=== PATIENT | male | born 1945 | race Caucasian/White ===

== ENCOUNTER 2022-03-11 18:56 | Inpatient (IN) ==
[2022-03-11] MEDS ORDERED: HYDROmorphone 1 MG/1 ML SYRINGE IV STA ×2 (19:52→23:40)
[2022-03-11] MEDS ORDERED: ONDANSETRON 4 MG/2 ML VIAL IV STA (19:52)
[2022-03-11 19:55] LABS: Basophils % 0.2 % (0.0-0.8); Eosinophils % 0.5 % (0.00-10.9); Hematocrit 34.9 VOL% (42.0-52.0); Hemoglobin 11.7 GM/DL (14.0-18.0); Immature Granulocytes % 1.1 %; Immature Granulocytes Absolute 0.09 #; Lymphocytes # 0.7 10*3/uL (1.4-4.0); Lymphocytes % 8.9 % (21.2-54.2); Mean Corpuscular HGB Conc 33.5 GM/DL (32-36); Mean Corpuscular Volume 96.7 FL (87-102); Mean Platelet Volume 9.9 FL (9.6-12.0); Monocytes # 0.6 10*3/uL (0.11-0.8); Monocytes % 6.6 % (1.7-12.7); Neutrophils % 82.7 % (38.7-73.9); Platelet Count 292 T/CUMM (130-400); Red Blood Count 3.61 MC/CUMM (3.8-5.5); Red Cell Distribution Width 14.1 % (9.3-17.3); White Blood Count 8.3 T/CUMM (4-12)
[2022-03-11 20:13] LABS: Albumin 2.7 G/DL (3.4-5.0); Bilirubin,Total 0.5 MG/DL (0.20-1.00); Calcium 8.9 MG/DL (8.5-10.1); Osmolality,Calculated 281.4 MOS/KG (273-304); Total Protein 6.3 G/DL (6.4-8.2)
[2022-03-11 20:34] LABS: PT Patient Result 11.4 SECS (10.5-12.0); Partial Thromboplastin Time 23.9 SECS (23.8-32.1)
[2022-03-11 21:21] LABS: Bilirubin,Urine Negative (Negative); Blood, Urine Large mg/dL (Negative); Glucose,Urine (UA) Negative (Negative); Ketones,Urine Trace mg/dL (Negative); Nitrite,Urine Negative (Negative); Protein,Urine 100 mg/dL (Negative); Urine Appearance Cloudy (Clear); Urine Color Dark Yellow (Yellow); Urine Specific Gravity 1.025 (1.001-1.035); Urine Urobilinogen 0.2 eU/dL (<2.0)
[2022-03-11 21:30] LABS: Hyaline Casts,Urine 7 /LPF (0-3); Mucus,Urine Occasional /LPF (Occasional); RBC,Urine 13 /HPF (0-4)
[2022-03-11] MEDS ORDERED: ONDANSETRON 4 MG/2 ML VIAL IV PRN (23:38)
[2022-03-11] MEDS ORDERED: PIPERACILLIN/TAZOBACTAM 3,375 MG in SODIUM CHLORIDE 0.9% 100 ML IV STA (23:38)
[2022-03-11] MEDS ORDERED: ASPIRIN 325 MG TABLET PO STA (23:54)
[2022-03-11] MEDS ORDERED: ROSUVASTATIN 10 MG TABLET PO STA (23:54)
[2022-03-12] MEDS ORDERED: ASPIRIN CHEW 81 MG TABLET PO ONE (00:09)
[2022-03-12] MEDS: LOSARTAN 50 MG TABLET PO STA ×2 (00:11→14:59)
[2022-03-12] MEDS ORDERED: LOSARTAN 25 MG TABLET PO STA (00:17)
[2022-03-12] MEDS: LACTATED RINGERS 1,000 ML IV SCH ×3 (01:38→19:29)
[2022-03-12] MEDS: PANTOPRAZOLE 40 MG TABLET PO SCH (09:53)
[2022-03-12] MEDS ORDERED: DOCUSATE SODIUM 100 MG CAPSULE PO PRN (10:33)
[2022-03-12] MEDS ORDERED: NITROGLYCERIN SL 0.4 MG TABLET SL PRN (10:33)
[2022-03-12] MEDS ORDERED: GLUCAGON 1 MG VIAL IM PRN (10:35)
[2022-03-12] MEDS ORDERED: DEXTROSE 10% 250 ML BAG IV PRN (10:35)
[2022-03-12] MEDS: INSULIN LISPRO 100 UNIT/ML SUBCUT SCH ×3 (12:16→21:24)
[2022-03-12] MEDS: ACETAMINOPHEN 500 MG TABLET PO PRN ×2 (12:58→21:25)
[2022-03-12] MEDS ORDERED: GLUCOSAMINE 500 MG TABLET PO SCH (21:00)
[2022-03-12] MEDS: ASPIRIN EC 81 MG TABLET PO SCH (21:22)
[2022-03-12] MEDS: POLYCARBOPHIL 625 MG TABLET PO SCH (21:22)
[2022-03-12] MEDS: ROSUVASTATIN 10 MG TABLET PO SCH (21:22)
[2022-03-12] MEDS: LOSARTAN 25 MG TABLET PO SCH (21:22)
[2022-03-12] MEDS: THYROID 60 MG TABLET PO SCH (21:22)
[2022-03-12] MEDS: COENZYME Q10 100 MG CAPSULE PO SCH (21:22)
[2022-03-12] MEDS: CYANOCOBALAMIN 500 MCG TABLET PO SCH (21:23)
[2022-03-12] MEDS: GLUCOSAMINE 500 MG TABLET PO SCH (21:23)
[2022-03-12] MEDS: OMEGA 3 ACID ETHYL ESTERS 1 GM CAPSULE PO SCH (21:23)
[2022-03-12] MEDS: ASCORBIC ACID 500 MG TABLET PO SCH (21:24)
[2022-03-12] MEDS: MAGNESIUM CHLORIDE 64 MG TABLET PO SCH (21:24)
[2022-03-12] MEDS: PYRIDOXINE 50 MG TABLET PO SCH (21:24)
[2022-03-12] MEDS: ZINC GLUCONATE 50 MG TABLET PO SCH (21:25)
[2022-03-12] MEDS: allopurinoL 300 MG TABLET PO SCH (21:25)
[2022-03-12] MEDS: CHOLECALCIFEROL 1,000 UNIT TABLET PO SCH (21:25)
[2022-03-12] MEDS: tiZANidine 4 MG TABLET PO SCH (21:25)
[2022-03-13] MEDS: LACTATED RINGERS 1,000 ML IV SCH ×4 (03:15→22:28)
[2022-03-13 04:28] LABS: Basophils % 0.2 % (0.0-0.8); Eosinophils # 0.1 10*3/uL (0.0-0.87); Eosinophils % 0.8 % (0.00-10.9); Hematocrit 32.8 VOL% (42.0-52.0); Hemoglobin 10.9 GM/DL (14.0-18.0); Immature Granulocytes % 1.7 %; Immature Granulocytes Absolute 0.16 #; Lymphocytes % 10.2 % (21.2-54.2); Mean Corpuscular HGB Conc 33.2 GM/DL (32-36); Mean Platelet Volume 10.1 FL (9.6-12.0); Monocytes # 0.5 10*3/uL (0.11-0.8); Monocytes % 4.7 % (1.7-12.7); Neutrophils % 82.4 % (38.7-73.9); Platelet Count 280 T/CUMM (130-400); Red Blood Count 3.38 MC/CUMM (3.8-5.5); Red Cell Distribution Width 13.9 % (9.3-17.3); White Blood Count 9.6 T/CUMM (4-12)
[2022-03-13 04:46] LABS: Calcium 9.1 MG/DL (8.5-10.1); Osmolality,Calculated 274.7 MOS/KG (273-304); Potassium 3.8 MMOL/L (3.5-5.1)
[2022-03-13] MEDS: INSULIN LISPRO 100 UNIT/ML SUBCUT SCH ×4 (09:07→20:34)
[2022-03-13] MEDS: LOSARTAN 25 MG TABLET PO SCH ×2 (09:45→20:42)
[2022-03-13] MEDS: MULTIVITAMIN (CENTRUM) TABLET PO SCH (09:45)
[2022-03-13] MEDS: TAMSULOSIN 0.4 MG CAPSULE PO SCH (09:46)
[2022-03-13] MEDS: OMEGA 3 ACID ETHYL ESTERS 1 GM CAPSULE PO SCH ×2 (09:47→20:40)
[2022-03-13] MEDS: MAGNESIUM CHLORIDE 64 MG TABLET PO SCH ×2 (09:47→20:42)
[2022-03-13] MEDS: allopurinoL 300 MG TABLET PO SCH ×2 (09:47→20:42)
[2022-03-13] MEDS: CHOLECALCIFEROL 1,000 UNIT TABLET PO SCH ×2 (09:48→20:40)
[2022-03-13] MEDS: PANTOPRAZOLE 40 MG TABLET PO SCH (09:48)
[2022-03-13] MEDS: ASCORBIC ACID 500 MG TABLET PO SCH ×2 (09:48→20:41)
[2022-03-13] MEDS: ZINC GLUCONATE 50 MG TABLET PO SCH ×2 (09:48→20:40)
[2022-03-13] MEDS: FLUTICASONE 50 MCG NASAL SPRAY 16 GM BOTTLE BOTH NARES SCH (09:49)
[2022-03-13] MEDS: POLYCARBOPHIL 625 MG TABLET PO SCH ×2 (09:49→20:41)
[2022-03-13] MEDS: ACETAMINOPHEN 500 MG TABLET PO PRN (09:51)
[2022-03-13] MEDS: PIPERACILLIN/TAZOBACTAM 3,375 MG in SODIUM CHLORIDE 0.9% 100 ML IV SCH ×2 (09:51→20:37)
[2022-03-13] MEDS ORDERED: DIAZEPAM 5 MG TABLET PO ONE (14:00)
[2022-03-13] MEDS ORDERED: SODIUM CHLORIDE 0.45% 1,000 ML IV SCH (14:30)
[2022-03-13] MEDS: GLUCOSAMINE 500 MG TABLET PO SCH ×2 (19:06→20:43)
[2022-03-13] MEDS: LINACLOTIDE 145 MCG CAPSULE PO SCH (19:14)
[2022-03-13] MEDS: ROSUVASTATIN 10 MG TABLET PO SCH (20:40)
[2022-03-13] MEDS: THYROID 60 MG TABLET PO SCH (20:41)
[2022-03-13] MEDS: COENZYME Q10 100 MG CAPSULE PO SCH (20:41)
[2022-03-13] MEDS: ASPIRIN EC 81 MG TABLET PO SCH (20:41)
[2022-03-13] MEDS: CYANOCOBALAMIN 500 MCG TABLET PO SCH (20:42)
[2022-03-13] MEDS: PYRIDOXINE 50 MG TABLET PO SCH (20:42)
[2022-03-13] MEDS: tiZANidine 4 MG TABLET PO SCH (20:42)
[2022-03-13] MEDS ORDERED: FLUCONAZOLE 100 MG TABLET PO ONE (21:45)
[2022-03-13] MEDS ORDERED: NYSTATIN 500,000 UNIT/5 ML UDCUP SWISH/SWAL STA (21:45)
[2022-03-13] MEDS: NYSTATIN 500,000 UNIT/5 ML UDCUP SWISH/SWAL SCH (21:56)
[2022-03-14] MEDS: ACETAMINOPHEN 500 MG TABLET PO PRN ×3 (02:24→21:15)
[2022-03-14] MEDS: PIPERACILLIN/TAZOBACTAM 3,375 MG in SODIUM CHLORIDE 0.9% 100 ML IV SCH ×3 (04:01→19:55)
[2022-03-14 04:26] LABS: Basophils % 0.3 % (0.0-0.8); Eosinophils # 0.1 10*3/uL (0.0-0.87); Eosinophils % 0.8 % (0.00-10.9); Hematocrit 31.6 VOL% (42.0-52.0); Hemoglobin 10.4 GM/DL (14.0-18.0); Immature Granulocytes % 1.2 %; Immature Granulocytes Absolute 0.12 #; Lymphocytes % 9.8 % (21.2-54.2); Mean Corpuscular HGB Conc 32.9 GM/DL (32-36); Mean Corpuscular Volume 96.9 FL (87-102); Mean Platelet Volume 9.9 FL (9.6-12.0); Monocytes # 0.4 10*3/uL (0.11-0.8); Monocytes % 4.5 % (1.7-12.7); Neutrophils % 83.4 % (38.7-73.9); Platelet Count 296 T/CUMM (130-400); Red Blood Count 3.26 MC/CUMM (3.8-5.5); Red Cell Distribution Width 13.8 % (9.3-17.3); White Blood Count 9.9 T/CUMM (4-12)
[2022-03-14 04:44] LABS: Calcium 8.8 MG/DL (8.5-10.1); Osmolality,Calculated 279.3 MOS/KG (273-304); Potassium 3.6 MMOL/L (3.5-5.1)
[2022-03-14] MEDS ORDERED: LIDOCAINE 2% TOP JELLY 20 ML VIAL INTRAURETH ONE (07:03)
[2022-03-14] MEDS: LACTATED RINGERS 1,000 ML IV SCH ×3 (07:30→17:59)
[2022-03-14] MEDS: INSULIN LISPRO 100 UNIT/ML SUBCUT SCH ×4 (07:51→21:41)
[2022-03-14] MEDS: TAMSULOSIN 0.4 MG CAPSULE PO SCH (08:53)
[2022-03-14] MEDS: OXYBUTYNIN 5 MG TABLET PO SCH ×3 (08:53→21:15)
[2022-03-14] MEDS: POTASSIUM BICARB EFFERVESCENT 20 MEQ TAB.EFF PER TUBE PRN ×2 (08:54→12:56)
[2022-03-14] MEDS: SIMETHICONE CHEW 125 MG TABLET PO PRN ×2 (08:54→12:56)
[2022-03-14] MEDS: MULTIVITAMIN (CENTRUM) TABLET PO SCH (08:54)
[2022-03-14] MEDS: ASCORBIC ACID 500 MG TABLET PO SCH ×2 (08:54→21:15)
[2022-03-14] MEDS: ZINC GLUCONATE 50 MG TABLET PO SCH ×2 (08:54→21:15)
[2022-03-14] MEDS: POLYCARBOPHIL 625 MG TABLET PO SCH ×2 (08:54→21:15)
[2022-03-14] MEDS: OMEGA 3 ACID ETHYL ESTERS 1 GM CAPSULE PO SCH ×2 (08:54→21:15)
[2022-03-14] MEDS: LINACLOTIDE 145 MCG CAPSULE PO SCH ×2 (08:54→09:00)
[2022-03-14] MEDS: LOSARTAN 25 MG TABLET PO SCH ×2 (08:55→21:15)
[2022-03-14] MEDS: NYSTATIN 500,000 UNIT/5 ML UDCUP SWISH/SWAL SCH ×4 (08:55→21:15)
[2022-03-14] MEDS: allopurinoL 300 MG TABLET PO SCH ×2 (08:55→21:42)
[2022-03-14] MEDS: MAGNESIUM CHLORIDE 64 MG TABLET PO SCH ×2 (08:55→21:15)
[2022-03-14] MEDS: PANTOPRAZOLE 40 MG TABLET PO SCH (08:55)
[2022-03-14] MEDS: CHOLECALCIFEROL 1,000 UNIT TABLET PO SCH ×2 (08:55→21:15)
[2022-03-14] MEDS: GLUCOSAMINE 500 MG TABLET PO SCH ×2 (09:35→21:15)
[2022-03-14] MEDS: FLUTICASONE 50 MCG NASAL SPRAY 16 GM BOTTLE BOTH NARES SCH (09:35)
[2022-03-14 10:08] LABS: RBC,Urine 3749 /HPF (0-4)
[2022-03-14 10:09] LABS: Urine Appearance Cloudy (Clear); Urine Color Red (Yellow)
[2022-03-14 10:10] LABS: Bilirubin,Urine Negative (Negative); Blood, Urine Large mg/dL (Negative); Glucose,Urine (UA) Negative (Negative); Ketones,Urine Trace mg/dL (Negative); Nitrite,Urine Negative (Negative); Protein,Urine 100 mg/dL (Negative); Urine Specific Gravity 1.015 (1.001-1.035); Urine Urobilinogen 0.2 eU/dL (<2.0)
[2022-03-14] MEDS: ASPIRIN EC 81 MG TABLET PO SCH (19:53)
[2022-03-14] MEDS: CYANOCOBALAMIN 500 MCG TABLET PO SCH (21:15)
[2022-03-14] MEDS: THYROID 60 MG TABLET PO SCH (21:15)
[2022-03-14] MEDS: ROSUVASTATIN 10 MG TABLET PO SCH (21:15)
[2022-03-14] MEDS: PYRIDOXINE 50 MG TABLET PO SCH (21:15)
[2022-03-14] MEDS: COENZYME Q10 100 MG CAPSULE PO SCH (21:15)
[2022-03-14] MEDS: tiZANidine 4 MG TABLET PO SCH (21:41)
[2022-03-15] MEDS: LACTATED RINGERS 1,000 ML IV SCH ×3 (02:01→19:00)
[2022-03-15] MEDS: ACETAMINOPHEN 500 MG TABLET PO PRN ×3 (03:05→17:24)
[2022-03-15] MEDS: PIPERACILLIN/TAZOBACTAM 3,375 MG in SODIUM CHLORIDE 0.9% 100 ML IV SCH ×3 (03:50→22:07)
[2022-03-15] MEDS: INSULIN LISPRO 100 UNIT/ML SUBCUT SCH ×4 (08:40→22:08)
[2022-03-15] MEDS: OXYBUTYNIN 5 MG TABLET PO SCH ×4 (09:36→20:13)
[2022-03-15] MEDS: POLYCARBOPHIL 625 MG TABLET PO SCH ×2 (09:37→20:12)
[2022-03-15] MEDS: ASCORBIC ACID 500 MG TABLET PO SCH ×2 (09:37→20:12)
[2022-03-15] MEDS: LINACLOTIDE 145 MCG CAPSULE PO SCH ×2 (09:37→09:43)
[2022-03-15] MEDS: MULTIVITAMIN (CENTRUM) TABLET PO SCH (09:38)
[2022-03-15] MEDS: PANTOPRAZOLE 40 MG TABLET PO SCH (09:38)
[2022-03-15] MEDS: NYSTATIN 500,000 UNIT/5 ML UDCUP SWISH/SWAL SCH ×4 (09:38→22:08)
[2022-03-15] MEDS: MAGNESIUM CHLORIDE 64 MG TABLET PO SCH ×2 (09:38→20:13)
[2022-03-15] MEDS: TAMSULOSIN 0.4 MG CAPSULE PO SCH (09:38)
[2022-03-15] MEDS: OMEGA 3 ACID ETHYL ESTERS 1 GM CAPSULE PO SCH ×2 (09:38→20:12)
[2022-03-15] MEDS: allopurinoL 300 MG TABLET PO SCH ×2 (09:38→20:11)
[2022-03-15] MEDS: ZINC GLUCONATE 50 MG TABLET PO SCH ×2 (09:38→20:13)
[2022-03-15] MEDS: CHOLECALCIFEROL 1,000 UNIT TABLET PO SCH ×2 (09:39→20:13)
[2022-03-15] MEDS: LOSARTAN 25 MG TABLET PO SCH ×2 (09:39→20:13)
[2022-03-15] MEDS: FLUTICASONE 50 MCG NASAL SPRAY 16 GM BOTTLE BOTH NARES SCH (09:41)
[2022-03-15] MEDS: GLUCOSAMINE 500 MG TABLET PO SCH ×2 (09:41→21:42)
[2022-03-15] MEDS: SIMETHICONE CHEW 125 MG TABLET PO PRN ×2 (12:48→20:12)
[2022-03-15] MEDS: ASPIRIN EC 81 MG TABLET PO SCH (20:12)
[2022-03-15] MEDS: PYRIDOXINE 50 MG TABLET PO SCH (20:13)
[2022-03-15] MEDS: tiZANidine 4 MG TABLET PO SCH (20:13)
[2022-03-15] MEDS: THYROID 60 MG TABLET PO SCH (20:13)
[2022-03-15] MEDS: ROSUVASTATIN 10 MG TABLET PO SCH (20:13)
[2022-03-15] MEDS: COENZYME Q10 100 MG CAPSULE PO SCH (20:13)
[2022-03-15] MEDS: CYANOCOBALAMIN 500 MCG TABLET PO SCH (20:13)
[2022-03-16] MEDS: ACETAMINOPHEN 500 MG TABLET PO PRN ×2 (00:12→21:21)
[2022-03-16] MEDS: PIPERACILLIN/TAZOBACTAM 3,375 MG in SODIUM CHLORIDE 0.9% 100 ML IV SCH ×2 (04:13→11:55)
[2022-03-16] MEDS: LACTATED RINGERS 1,000 ML IV SCH ×3 (04:13→18:45)
[2022-03-16 05:20] LABS: Basophils % 0.3 % (0.0-0.8); Eosinophils # 0.2 10*3/uL (0.0-0.87); Eosinophils % 2.2 % (0.00-10.9); Hematocrit 33.4 VOL% (42.0-52.0); Hemoglobin 10.9 GM/DL (14.0-18.0); Immature Granulocytes % 1.7 %; Immature Granulocytes Absolute 0.12 #; Lymphocytes # 1.5 10*3/uL (1.4-4.0); Lymphocytes % 21.5 % (21.2-54.2); Mean Corpuscular HGB Conc 32.6 GM/DL (32-36); Mean Corpuscular Volume 98.8 FL (87-102); Mean Platelet Volume 9.6 FL (9.6-12.0); Monocytes # 0.4 10*3/uL (0.11-0.8); Neutrophils % 68.3 % (38.7-73.9); Platelet Count 310 T/CUMM (130-400); Red Blood Count 3.38 MC/CUMM (3.8-5.5); White Blood Count 6.9 T/CUMM (4-12)
[2022-03-16 06:54] LABS: Calcium 8.6 MG/DL (8.5-10.1); Osmolality,Calculated 280.1 MOS/KG (273-304); Potassium 4.3 MMOL/L (3.5-5.1)
[2022-03-16] MEDS: INSULIN LISPRO 100 UNIT/ML SUBCUT SCH ×4 (07:34→21:24)
[2022-03-16] MEDS: POLYCARBOPHIL 625 MG TABLET PO SCH ×2 (08:07→21:19)
[2022-03-16] MEDS: allopurinoL 300 MG TABLET PO SCH ×2 (08:07→21:21)
[2022-03-16] MEDS: TAMSULOSIN 0.4 MG CAPSULE PO SCH (08:08)
[2022-03-16] MEDS: ASCORBIC ACID 500 MG TABLET PO SCH ×2 (08:08→21:20)
[2022-03-16] MEDS: OMEGA 3 ACID ETHYL ESTERS 1 GM CAPSULE PO SCH ×2 (08:15→21:21)
[2022-03-16] MEDS: CHOLECALCIFEROL 1,000 UNIT TABLET PO SCH ×2 (08:15→21:24)
[2022-03-16] MEDS: ZINC GLUCONATE 50 MG TABLET PO SCH ×2 (08:15→21:21)
[2022-03-16] MEDS: MULTIVITAMIN (CENTRUM) TABLET PO SCH (08:16)
[2022-03-16] MEDS: MAGNESIUM CHLORIDE 64 MG TABLET PO SCH ×2 (08:16→21:20)
[2022-03-16] MEDS: LOSARTAN 25 MG TABLET PO SCH ×2 (08:16→21:19)
[2022-03-16] MEDS: PANTOPRAZOLE 40 MG TABLET PO SCH (08:16)
[2022-03-16] MEDS: OXYBUTYNIN 5 MG TABLET PO SCH ×4 (08:16→21:21)
[2022-03-16] MEDS: GLUCOSAMINE 500 MG TABLET PO SCH ×2 (08:17→21:24)
[2022-03-16] MEDS: LINACLOTIDE 145 MCG CAPSULE PO SCH (08:17)
[2022-03-16] MEDS: NYSTATIN 500,000 UNIT/5 ML UDCUP SWISH/SWAL SCH ×4 (08:17→21:19)
[2022-03-16] MEDS: FLUTICASONE 50 MCG NASAL SPRAY 16 GM BOTTLE BOTH NARES SCH (08:17)
[2022-03-16] MEDS: SIMETHICONE CHEW 125 MG TABLET PO PRN (16:58)
[2022-03-16] MEDS: ASPIRIN EC 81 MG TABLET PO SCH (18:45)
[2022-03-16] MEDS ORDERED: LACTULOSE 20 GM/30 ML UDCUP PO ONE (19:07)
[2022-03-16] MEDS: MEROPENEM 500 MG in SODIUM CHLORIDE 0.9% 100 ML IV SCH (21:17)
[2022-03-16] MEDS: COENZYME Q10 100 MG CAPSULE PO SCH (21:19)
[2022-03-16] MEDS: CYANOCOBALAMIN 500 MCG TABLET PO SCH (21:23)
[2022-03-16] MEDS: tiZANidine 4 MG TABLET PO SCH (21:23)
[2022-03-16] MEDS: PYRIDOXINE 50 MG TABLET PO SCH (21:23)
[2022-03-16] MEDS: ROSUVASTATIN 10 MG TABLET PO SCH (21:24)
[2022-03-16] MEDS: THYROID 60 MG TABLET PO SCH (21:24)
[2022-03-17] MEDS: MEROPENEM 500 MG in SODIUM CHLORIDE 0.9% 100 ML IV SCH ×4 (02:22→20:36)
[2022-03-17 05:01] LABS: Basophils % 0.3 % (0.0-0.8); Eosinophils # 0.1 10*3/uL (0.0-0.87); Eosinophils % 1.9 % (0.00-10.9); Hematocrit 32.3 VOL% (42.0-52.0); Hemoglobin 10.5 GM/DL (14.0-18.0); Immature Granulocytes % 1.4 %; Lymphocytes # 1.4 10*3/uL (1.4-4.0); Lymphocytes % 18.9 % (21.2-54.2); Mean Corpuscular HGB Conc 32.5 GM/DL (32-36); Mean Corpuscular Volume 97.9 FL (87-102); Mean Platelet Volume 9.6 FL (9.6-12.0); Monocytes # 0.4 10*3/uL (0.11-0.8); Monocytes % 5.4 % (1.7-12.7); Neutrophils % 72.1 % (38.7-73.9); Platelet Count 301 T/CUMM (130-400); White Blood Count 7.2 T/CUMM (4-12)
[2022-03-17 05:16] LABS: Calcium 8.8 MG/DL (8.5-10.1); Potassium 4.2 MMOL/L (3.5-5.1)
[2022-03-17 05:33] LABS: Platelet Estimate Adequate
[2022-03-17] MEDS: INSULIN LISPRO 100 UNIT/ML SUBCUT SCH ×4 (09:22→20:49)
[2022-03-17] MEDS: MULTIVITAMIN (CENTRUM) TABLET PO SCH (09:26)
[2022-03-17] MEDS: DOCUSATE SODIUM 100 MG CAPSULE PO SCH (09:26)
[2022-03-17] MEDS: FLUTICASONE 50 MCG NASAL SPRAY 16 GM BOTTLE BOTH NARES SCH (09:27)
[2022-03-17] MEDS: TAMSULOSIN 0.4 MG CAPSULE PO SCH (09:27)
[2022-03-17] MEDS: POLYCARBOPHIL 625 MG TABLET PO SCH ×2 (09:27→20:29)
[2022-03-17] MEDS: OXYBUTYNIN 5 MG TABLET PO SCH ×4 (09:27→20:32)
[2022-03-17] MEDS: LOSARTAN 25 MG TABLET PO SCH ×2 (09:27→20:29)
[2022-03-17] MEDS: OMEGA 3 ACID ETHYL ESTERS 1 GM CAPSULE PO SCH ×2 (09:28→20:28)
[2022-03-17] MEDS: NYSTATIN 500,000 UNIT/5 ML UDCUP SWISH/SWAL SCH ×4 (09:28→20:32)
[2022-03-17] MEDS: MAGNESIUM CHLORIDE 64 MG TABLET PO SCH ×2 (09:29→20:30)
[2022-03-17] MEDS: PANTOPRAZOLE 40 MG TABLET PO SCH (09:29)
[2022-03-17] MEDS: ASCORBIC ACID 500 MG TABLET PO SCH ×2 (09:29→20:29)
[2022-03-17] MEDS: ZINC GLUCONATE 50 MG TABLET PO SCH ×2 (09:30→20:30)
[2022-03-17] MEDS: allopurinoL 300 MG TABLET PO SCH ×2 (09:30→20:33)
[2022-03-17] MEDS: CHOLECALCIFEROL 1,000 UNIT TABLET PO SCH ×2 (09:30→20:32)
[2022-03-17] MEDS: ACETAMINOPHEN 500 MG TABLET PO PRN ×2 (09:31→20:31)
[2022-03-17] MEDS: LINACLOTIDE 145 MCG CAPSULE PO SCH (09:37)
[2022-03-17] MEDS: LACTATED RINGERS 1,000 ML IV SCH ×2 (14:58)
[2022-03-17] MEDS: ASPIRIN EC 81 MG TABLET PO SCH (18:07)
[2022-03-17] MEDS: COENZYME Q10 100 MG CAPSULE PO SCH (20:29)
[2022-03-17] MEDS: PYRIDOXINE 50 MG TABLET PO SCH (20:29)
[2022-03-17] MEDS: CYANOCOBALAMIN 500 MCG TABLET PO SCH (20:30)
[2022-03-17] MEDS: THYROID 60 MG TABLET PO SCH (20:31)
[2022-03-17] MEDS: ROSUVASTATIN 10 MG TABLET PO SCH (20:32)
[2022-03-17] MEDS: tiZANidine 4 MG TABLET PO SCH (20:32)
[2022-03-18] MEDS: MEROPENEM 500 MG in SODIUM CHLORIDE 0.9% 100 ML IV SCH ×4 (01:02→21:59)
[2022-03-18] MEDS: LACTATED RINGERS 1,000 ML IV SCH ×4 (01:02→20:26)
[2022-03-18] MEDS: INSULIN LISPRO 100 UNIT/ML SUBCUT SCH ×4 (08:42→22:05)
[2022-03-18] MEDS ORDERED: SEMAGLUTIDE SUBCUT SCH (09:00)
[2022-03-18] MEDS: DOCUSATE SODIUM 100 MG CAPSULE PO SCH (09:32)
[2022-03-18] MEDS: LOSARTAN 25 MG TABLET PO SCH ×2 (09:32→22:02)
[2022-03-18] MEDS: MULTIVITAMIN (CENTRUM) TABLET PO SCH (09:32)
[2022-03-18] MEDS: TAMSULOSIN 0.4 MG CAPSULE PO SCH (09:33)
[2022-03-18] MEDS: POLYCARBOPHIL 625 MG TABLET PO SCH ×2 (09:33→22:15)
[2022-03-18] MEDS: OXYBUTYNIN 5 MG TABLET PO SCH ×4 (09:33→22:01)
[2022-03-18] MEDS: FLUTICASONE 50 MCG NASAL SPRAY 16 GM BOTTLE BOTH NARES SCH (09:34)
[2022-03-18] MEDS: OMEGA 3 ACID ETHYL ESTERS 1 GM CAPSULE PO SCH ×2 (09:35→22:16)
[2022-03-18] MEDS: PANTOPRAZOLE 40 MG TABLET PO SCH (09:35)
[2022-03-18] MEDS: NYSTATIN 500,000 UNIT/5 ML UDCUP SWISH/SWAL SCH ×4 (09:35→22:04)
[2022-03-18] MEDS: MAGNESIUM CHLORIDE 64 MG TABLET PO SCH ×2 (09:36→22:02)
[2022-03-18] MEDS: ASCORBIC ACID 500 MG TABLET PO SCH ×2 (09:36→22:15)
[2022-03-18] MEDS: ZINC GLUCONATE 50 MG TABLET PO SCH ×2 (09:37→22:04)
[2022-03-18] MEDS: allopurinoL 300 MG TABLET PO SCH ×2 (09:37→22:01)
[2022-03-18] MEDS: ACETAMINOPHEN 500 MG TABLET PO PRN ×2 (09:38→22:03)
[2022-03-18] MEDS: LINACLOTIDE 145 MCG CAPSULE PO SCH (09:41)
[2022-03-18] MEDS: CHOLECALCIFEROL 1,000 UNIT TABLET PO SCH ×2 (10:02→22:04)
[2022-03-18] MEDS: ASPIRIN EC 81 MG TABLET PO SCH (18:00)
[2022-03-18] MEDS: THYROID 60 MG TABLET PO SCH (21:59)
[2022-03-18] MEDS: ROSUVASTATIN 10 MG TABLET PO SCH (22:00)
[2022-03-18] MEDS: COENZYME Q10 100 MG CAPSULE PO SCH (22:03)
[2022-03-18] MEDS: PYRIDOXINE 50 MG TABLET PO SCH (22:04)
[2022-03-18] MEDS: tiZANidine 4 MG TABLET PO SCH (22:04)
[2022-03-18] MEDS: CYANOCOBALAMIN 500 MCG TABLET PO SCH (22:15)
[2022-03-19] MEDS: LACTATED RINGERS 1,000 ML IV SCH ×2 (04:30→10:50)
[2022-03-19] MEDS: MEROPENEM 500 MG in SODIUM CHLORIDE 0.9% 100 ML IV SCH ×4 (06:17→21:46)
[2022-03-19] MEDS ORDERED: LACTULOSE 20 GM/30 ML UDCUP PO ONE (10:28)
[2022-03-19] MEDS: INSULIN LISPRO 100 UNIT/ML SUBCUT SCH ×4 (10:38→21:52)
[2022-03-19] MEDS: MULTIVITAMIN (CENTRUM) TABLET PO SCH (10:39)
[2022-03-19] MEDS: LINACLOTIDE 145 MCG CAPSULE PO SCH (10:39)
[2022-03-19] MEDS: CHOLECALCIFEROL 1,000 UNIT TABLET PO SCH ×2 (10:40→21:50)
[2022-03-19] MEDS: POLYCARBOPHIL 625 MG TABLET PO SCH ×2 (10:40→21:49)
[2022-03-19] MEDS: DOCUSATE SODIUM 100 MG CAPSULE PO SCH (10:40)
[2022-03-19] MEDS: ACETAMINOPHEN 500 MG TABLET PO PRN ×2 (10:40→21:46)
[2022-03-19] MEDS: ASCORBIC ACID 500 MG TABLET PO SCH ×2 (10:41→21:50)
[2022-03-19] MEDS: LOSARTAN 25 MG TABLET PO SCH ×2 (10:41→21:51)
[2022-03-19] MEDS: MAGNESIUM CHLORIDE 64 MG TABLET PO SCH ×2 (10:41→21:52)
[2022-03-19] MEDS: OXYBUTYNIN 5 MG TABLET PO SCH ×4 (10:41→21:49)
[2022-03-19] MEDS: TAMSULOSIN 0.4 MG CAPSULE PO SCH (10:41)
[2022-03-19] MEDS: ZINC GLUCONATE 50 MG TABLET PO SCH ×2 (10:41→21:49)
[2022-03-19] MEDS: PANTOPRAZOLE 40 MG TABLET PO SCH (10:42)
[2022-03-19] MEDS: OMEGA 3 ACID ETHYL ESTERS 1 GM CAPSULE PO SCH ×2 (10:42→21:50)
[2022-03-19] MEDS: NYSTATIN 500,000 UNIT/5 ML UDCUP SWISH/SWAL SCH ×4 (10:42→21:51)
[2022-03-19] MEDS: allopurinoL 300 MG TABLET PO SCH ×2 (10:42→21:51)
[2022-03-19] MEDS: FLUTICASONE 50 MCG NASAL SPRAY 16 GM BOTTLE BOTH NARES SCH (10:42)
[2022-03-19] MEDS: ASPIRIN EC 81 MG TABLET PO SCH (18:30)
[2022-03-19] MEDS: COENZYME Q10 100 MG CAPSULE PO SCH (21:49)
[2022-03-19] MEDS: tiZANidine 4 MG TABLET PO SCH (21:49)
[2022-03-19] MEDS: CYANOCOBALAMIN 500 MCG TABLET PO SCH (21:50)
[2022-03-19] MEDS: PYRIDOXINE 50 MG TABLET PO SCH (21:51)
[2022-03-19] MEDS: ROSUVASTATIN 10 MG TABLET PO SCH (21:51)
[2022-03-19] MEDS: THYROID 60 MG TABLET PO SCH (21:51)
[2022-03-19] MEDS: HYDROmorphone 1 MG/1 ML SYRINGE IV PRN (23:52)
[2022-03-20] MEDS: MEROPENEM 500 MG in SODIUM CHLORIDE 0.9% 100 ML IV SCH ×4 (03:09→20:20)
[2022-03-20] MEDS: HYDROmorphone 1 MG/1 ML SYRINGE IV PRN (03:22)
[2022-03-20 06:29] LABS: Basophils % 0.3 % (0.0-0.8); Eosinophils # 0.1 10*3/uL (0.0-0.87); Eosinophils % 1.9 % (0.00-10.9); Hematocrit 34.3 VOL% (42.0-52.0); Hemoglobin 11.2 GM/DL (14.0-18.0); Immature Granulocytes % 0.7 %; Immature Granulocytes Absolute 0.05 #; Lymphocytes # 1.3 10*3/uL (1.4-4.0); Lymphocytes % 18.9 % (21.2-54.2); Mean Corpuscular HGB Conc 32.7 GM/DL (32-36); Mean Corpuscular Volume 98.8 FL (87-102); Mean Platelet Volume 9.6 FL (9.6-12.0); Monocytes # 0.4 10*3/uL (0.11-0.8); Monocytes % 6.3 % (1.7-12.7); Neutrophils % 71.9 % (38.7-73.9); Platelet Count 282 T/CUMM (130-400); Red Blood Count 3.47 MC/CUMM (3.8-5.5); Red Cell Distribution Width 14.1 % (9.3-17.3); White Blood Count 6.8 T/CUMM (4-12)
[2022-03-20 06:41] LABS: Calcium 9.1 MG/DL (8.5-10.1); Potassium 4.4 MMOL/L (3.5-5.1)
[2022-03-20] MEDS: INSULIN LISPRO 100 UNIT/ML SUBCUT SCH ×4 (08:40→20:25)
[2022-03-20] MEDS ORDERED: fentaNYL 100 MCG/2 ML VIAL IV ONE (09:35)
[2022-03-20] MEDS ORDERED: DIAZEPAM 5 MG TABLET PO ONE (09:35)
[2022-03-20] MEDS ORDERED: MIDAZOLAM 2 MG/2 ML VIAL IV ONE (09:35)
[2022-03-20] MEDS: LACTATED RINGERS 1,000 ML IV SCH ×2 (09:55→20:21)
[2022-03-20] MEDS ORDERED: SODIUM CHLORIDE 0.45% 1,000 ML IV SCH (10:00)
[2022-03-20] MEDS: MULTIVITAMIN (CENTRUM) TABLET PO SCH (12:35)
[2022-03-20] MEDS: ZINC GLUCONATE 50 MG TABLET PO SCH ×2 (12:36→20:25)
[2022-03-20] MEDS: POLYCARBOPHIL 625 MG TABLET PO SCH ×2 (12:36→20:23)
[2022-03-20] MEDS: OMEGA 3 ACID ETHYL ESTERS 1 GM CAPSULE PO SCH ×2 (12:36→20:24)
[2022-03-20] MEDS: DOCUSATE SODIUM 100 MG CAPSULE PO SCH (12:36)
[2022-03-20] MEDS: PANTOPRAZOLE 40 MG TABLET PO SCH (12:36)
[2022-03-20] MEDS: MAGNESIUM CHLORIDE 64 MG TABLET PO SCH ×2 (12:36→20:24)
[2022-03-20] MEDS: NYSTATIN 500,000 UNIT/5 ML UDCUP SWISH/SWAL SCH ×4 (12:36→20:24)
[2022-03-20] MEDS: allopurinoL 300 MG TABLET PO SCH ×2 (12:36→20:24)
[2022-03-20] MEDS: TAMSULOSIN 0.4 MG CAPSULE PO SCH (12:37)
[2022-03-20] MEDS: LOSARTAN 25 MG TABLET PO SCH ×2 (12:37→21:29)
[2022-03-20] MEDS: OXYBUTYNIN 5 MG TABLET PO SCH ×4 (12:37→20:25)
[2022-03-20] MEDS: ASCORBIC ACID 500 MG TABLET PO SCH ×2 (12:37→20:23)
[2022-03-20] MEDS: CHOLECALCIFEROL 1,000 UNIT TABLET PO SCH ×2 (12:38→20:22)
[2022-03-20] MEDS: ACETAMINOPHEN 500 MG TABLET PO PRN (12:38)
[2022-03-20] MEDS: LINACLOTIDE 145 MCG CAPSULE PO SCH (12:39)
[2022-03-20] MEDS: FLUTICASONE 50 MCG NASAL SPRAY 16 GM BOTTLE BOTH NARES SCH (13:32)
[2022-03-20] MEDS: ASPIRIN EC 81 MG TABLET PO SCH (18:35)
[2022-03-20] MEDS: COENZYME Q10 100 MG CAPSULE PO SCH (20:22)
[2022-03-20] MEDS: tiZANidine 4 MG TABLET PO SCH (20:22)
[2022-03-20] MEDS: CYANOCOBALAMIN 500 MCG TABLET PO SCH (20:23)
[2022-03-20] MEDS: ROSUVASTATIN 10 MG TABLET PO SCH (20:24)
[2022-03-20] MEDS: THYROID 60 MG TABLET PO SCH (20:24)
[2022-03-20] MEDS: PYRIDOXINE 50 MG TABLET PO SCH (20:25)
[2022-03-21] MEDS: MEROPENEM 500 MG in SODIUM CHLORIDE 0.9% 100 ML IV SCH ×4 (03:29→20:15)
[2022-03-21] MEDS: LACTATED RINGERS 1,000 ML IV SCH ×2 (03:29→18:40)
[2022-03-21] MEDS: INSULIN LISPRO 100 UNIT/ML SUBCUT SCH ×4 (07:33→21:36)
[2022-03-21] MEDS ORDERED: LACTULOSE 20 GM/30 ML UDCUP PO PRN (08:59)
[2022-03-21] MEDS: FLUTICASONE 50 MCG NASAL SPRAY 16 GM BOTTLE BOTH NARES SCH (09:59)
[2022-03-21] MEDS: ZINC GLUCONATE 50 MG TABLET PO SCH ×2 (09:59→20:15)
[2022-03-21] MEDS: OMEGA 3 ACID ETHYL ESTERS 1 GM CAPSULE PO SCH ×2 (09:59→20:15)
[2022-03-21] MEDS: allopurinoL 300 MG TABLET PO SCH ×2 (09:59→20:14)
[2022-03-21] MEDS: OXYBUTYNIN 5 MG TABLET PO SCH ×4 (10:00→20:15)
[2022-03-21] MEDS: ACETAMINOPHEN 500 MG TABLET PO PRN ×2 (10:00→17:36)
[2022-03-21] MEDS: MULTIVITAMIN (CENTRUM) TABLET PO SCH (10:00)
[2022-03-21] MEDS: CHOLECALCIFEROL 1,000 UNIT TABLET PO SCH ×2 (10:01→20:14)
[2022-03-21] MEDS: POLYCARBOPHIL 625 MG TABLET PO SCH ×2 (10:01→23:28)
[2022-03-21] MEDS: MAGNESIUM CHLORIDE 64 MG TABLET PO SCH ×2 (10:01→20:13)
[2022-03-21] MEDS: TAMSULOSIN 0.4 MG CAPSULE PO SCH (10:02)
[2022-03-21] MEDS: NYSTATIN 500,000 UNIT/5 ML UDCUP SWISH/SWAL SCH ×4 (10:02→20:12)
[2022-03-21] MEDS: PANTOPRAZOLE 40 MG TABLET PO SCH (10:02)
[2022-03-21] MEDS: DOCUSATE SODIUM 100 MG CAPSULE PO SCH (10:02)
[2022-03-21] MEDS: ASCORBIC ACID 500 MG TABLET PO SCH ×2 (10:03→20:13)
[2022-03-21] MEDS: LINACLOTIDE 145 MCG CAPSULE PO SCH (10:04)
[2022-03-21] MEDS: LOSARTAN 25 MG TABLET PO SCH ×2 (10:12→20:15)
[2022-03-21 19:02] LABS: Calcium 9.2 MG/DL (8.5-10.1); Osmolality,Calculated 277.7 MOS/KG (273-304); Potassium 4.5 MMOL/L (3.5-5.1)
[2022-03-21] MEDS: COENZYME Q10 100 MG CAPSULE PO SCH (20:13)
[2022-03-21] MEDS: ROSUVASTATIN 10 MG TABLET PO SCH (20:14)
[2022-03-21] MEDS: THYROID 60 MG TABLET PO SCH (20:14)
[2022-03-21] MEDS: CYANOCOBALAMIN 500 MCG TABLET PO SCH (20:14)
[2022-03-21] MEDS: PYRIDOXINE 50 MG TABLET PO SCH (20:14)
[2022-03-21] MEDS: tiZANidine 4 MG TABLET PO SCH (20:15)
[2022-03-21] MEDS: SIMETHICONE CHEW 125 MG TABLET PO PRN (20:15)
[2022-03-21] MEDS: ASPIRIN EC 81 MG TABLET PO SCH (20:24)
[2022-03-22] MEDS: MEROPENEM 500 MG in SODIUM CHLORIDE 0.9% 100 ML IV SCH ×4 (04:04→20:18)
[2022-03-22 05:58] LABS: Basophils % 0.3 % (0.0-0.8); Eosinophils # 0.1 10*3/uL (0.0-0.87); Eosinophils % 1.8 % (0.00-10.9); Hematocrit 35.6 VOL% (42.0-52.0); Hemoglobin 11.5 GM/DL (14.0-18.0); Immature Granulocytes % 0.3 %; Immature Granulocytes Absolute 0.02 #; Lymphocytes # 1.2 10*3/uL (1.4-4.0); Lymphocytes % 17.6 % (21.2-54.2); Mean Corpuscular HGB Conc 32.3 GM/DL (32-36); Mean Corpuscular Volume 99.2 FL (87-102); Mean Platelet Volume 9.9 FL (9.6-12.0); Monocytes # 0.5 10*3/uL (0.11-0.8); Monocytes % 7.9 % (1.7-12.7); Neutrophils % 72.1 % (38.7-73.9); Platelet Count 256 T/CUMM (130-400); Red Blood Count 3.59 MC/CUMM (3.8-5.5); Red Cell Distribution Width 14.2 % (9.3-17.3); White Blood Count 6.8 T/CUMM (4-12)
[2022-03-22] MEDS: INSULIN LISPRO 100 UNIT/ML SUBCUT SCH ×4 (07:35→20:22)
[2022-03-22] MEDS: DOCUSATE SODIUM 100 MG CAPSULE PO SCH (09:29)
[2022-03-22] MEDS: POLYCARBOPHIL 625 MG TABLET PO SCH ×2 (09:30→21:38)
[2022-03-22] MEDS: ASCORBIC ACID 500 MG TABLET PO SCH ×2 (09:30→20:19)
[2022-03-22] MEDS: MULTIVITAMIN (CENTRUM) TABLET PO SCH (09:30)
[2022-03-22] MEDS: MAGNESIUM CHLORIDE 64 MG TABLET PO SCH ×2 (09:30→20:21)
[2022-03-22] MEDS: ZINC GLUCONATE 50 MG TABLET PO SCH ×2 (09:30→20:20)
[2022-03-22] MEDS: LINACLOTIDE 145 MCG CAPSULE PO SCH (09:30)
[2022-03-22] MEDS: OMEGA 3 ACID ETHYL ESTERS 1 GM CAPSULE PO SCH ×2 (09:30→21:38)
[2022-03-22] MEDS: LOSARTAN 25 MG TABLET PO SCH ×2 (09:30→20:20)
[2022-03-22] MEDS: NYSTATIN 500,000 UNIT/5 ML UDCUP SWISH/SWAL SCH ×4 (09:31→20:21)
[2022-03-22] MEDS: CHOLECALCIFEROL 1,000 UNIT TABLET PO SCH ×2 (09:31→20:21)
[2022-03-22] MEDS: allopurinoL 300 MG TABLET PO SCH ×2 (09:31→20:20)
[2022-03-22] MEDS: OXYBUTYNIN 5 MG TABLET PO SCH ×4 (09:31→20:21)
[2022-03-22] MEDS: TAMSULOSIN 0.4 MG CAPSULE PO SCH (09:31)
[2022-03-22] MEDS: PANTOPRAZOLE 40 MG TABLET PO SCH (09:31)
[2022-03-22] MEDS: FLUTICASONE 50 MCG NASAL SPRAY 16 GM BOTTLE BOTH NARES SCH (09:36)
[2022-03-22] MEDS: LACTATED RINGERS 1,000 ML IV SCH (13:44)
[2022-03-22] MEDS: CYANOCOBALAMIN 500 MCG TABLET PO SCH (20:20)
[2022-03-22] MEDS: PYRIDOXINE 50 MG TABLET PO SCH (20:20)
[2022-03-22] MEDS: ROSUVASTATIN 10 MG TABLET PO SCH (20:20)
[2022-03-22] MEDS: ASPIRIN EC 81 MG TABLET PO SCH (20:21)
[2022-03-22] MEDS: SIMETHICONE CHEW 125 MG TABLET PO PRN (20:21)
[2022-03-22] MEDS: tiZANidine 4 MG TABLET PO SCH (20:21)
[2022-03-22] MEDS: COENZYME Q10 100 MG CAPSULE PO SCH (20:21)
[2022-03-22] MEDS: THYROID 60 MG TABLET PO SCH (20:22)
[2022-03-22] MEDS: ACETAMINOPHEN 500 MG TABLET PO PRN (20:32)
[2022-03-22] MEDS ORDERED: ZALEPLON 5 MG CAPSULE PO SCH (21:00)
[2022-03-22] MEDS: HYDROmorphone 1 MG/1 ML SYRINGE IV PRN (23:41)
[2022-03-23] MEDS: MEROPENEM 500 MG in SODIUM CHLORIDE 0.9% 100 ML IV SCH (02:16)
[2022-03-23] MEDS: LACTATED RINGERS 1,000 ML IV SCH (04:33)
[2022-03-23] MEDS: INSULIN LISPRO 100 UNIT/ML SUBCUT SCH (08:12)
[2022-03-23 08:36] VITALS: BP 162/61
== END 2022-03-23 11:07 | disposition home health service (06) | DRG 863 ==
LOC: N.ED 18:56 → N.EDINP 23:38 → N.ICU 03-12 14:33 → N.5E 03-15 17:36
PROVIDERS: ADMIT Family Medicine; ATTEND Family Medicine

== ENCOUNTER 2022-04-25 15:49 | Inpatient (IN) ==
[2022-04-25] MEDS ORDERED: SODIUM CHLORIDE 0.9% 1,000 ML IV STA (17:21)
[2022-04-25 17:41] LABS: Basophils % 0.2 % (0.0-0.8); Eosinophils # 0.1 10*3/uL (0.0-0.87); Eosinophils % 1.9 % (0.00-10.9); Hematocrit 34.7 VOL% (42.0-52.0); Hemoglobin 11.6 GM/DL (14.0-18.0); Immature Granulocytes % 0.3 %; Immature Granulocytes Absolute 0.02 #; Lymphocytes % 16.6 % (21.2-54.2); Mean Corpuscular HGB Conc 33.4 GM/DL (32-36); Mean Corpuscular Volume 94.3 FL (87-102); Mean Platelet Volume 9.9 FL (9.6-12.0); Monocytes # 0.5 10*3/uL (0.11-0.8); Platelet Count 173 T/CUMM (130-400); Red Blood Count 3.68 MC/CUMM (3.8-5.5); Red Cell Distribution Width 14.5 % (9.3-17.3); White Blood Count 5.7 T/CUMM (4-12)
[2022-04-25 17:55] LABS: Bacteria,Urine Many /HPF (Few); Mucus,Urine Occasional /LPF (Occasional); RBC,Urine 218 /HPF (0-4)
[2022-04-25 17:58] LABS: Bilirubin,Urine Negative (Negative); Blood, Urine Large mg/dL (Negative); Glucose,Urine (UA) Negative (Negative); Ketones,Urine Negative (Negative); Nitrite,Urine Positive (Negative); Protein,Urine 100 mg/dL (Negative); Urine Appearance Clear (Clear); Urine Color Yellow (Yellow); Urine Specific Gravity 1.015 (1.001-1.035); Urine Urobilinogen 0.2 eU/dL (<2.0)
[2022-04-25 18:01] LABS: Albumin 2.9 G/DL (3.4-5.0); Bilirubin,Total 0.4 MG/DL (0.20-1.00); Calcium 9.8 MG/DL (8.5-10.1); Osmolality,Calculated 275.8 MOS/KG (273-304); Potassium 4.1 MMOL/L (3.5-5.1); Total Protein 7.1 G/DL (6.4-8.2)
[2022-04-25] MEDS ORDERED: tiZANidine 4 MG TABLET PO PRN (20:05)
[2022-04-25] MEDS ORDERED: ONDANSETRON 4 MG/2 ML VIAL IV PRN (20:05)
[2022-04-25] MEDS: SODIUM CHLORIDE 0.9% 1,000 ML IV SCH (23:45)
[2022-04-25] MEDS: PIPERACILLIN/TAZOBACTAM 3,375 MG in SODIUM CHLORIDE 0.9% 100 ML IV SCH (23:45)
[2022-04-26] MEDS: PIPERACILLIN/TAZOBACTAM 3,375 MG in SODIUM CHLORIDE 0.9% 100 ML IV SCH ×3 (05:20→21:40)
[2022-04-26] MEDS: SODIUM CHLORIDE 0.9% 1,000 ML IV SCH ×2 (06:10→17:56)
[2022-04-26 06:17] LABS: Basophils % 0.3 % (0.0-0.8); Eosinophils # 0.1 10*3/uL (0.0-0.87); Eosinophils % 1.1 % (0.00-10.9); Hematocrit 33.8 VOL% (42.0-52.0); Hemoglobin 11.2 GM/DL (14.0-18.0); Immature Granulocytes % 0.6 %; Immature Granulocytes Absolute 0.04 #; Lymphocytes # 0.9 10*3/uL (1.4-4.0); Lymphocytes % 13.9 % (21.2-54.2); Mean Corpuscular HGB Conc 33.1 GM/DL (32-36); Mean Corpuscular Volume 93.9 FL (87-102); Mean Platelet Volume 9.9 FL (9.6-12.0); Monocytes # 0.6 10*3/uL (0.11-0.8); Monocytes % 8.6 % (1.7-12.7); Neutrophils % 75.5 % (38.7-73.9); Platelet Count 173 T/CUMM (130-400); Red Cell Distribution Width 14.4 % (9.3-17.3); White Blood Count 6.6 T/CUMM (4-12)
[2022-04-26 06:35] LABS: Albumin 2.6 G/DL (3.4-5.0); Bilirubin,Total 0.5 MG/DL (0.20-1.00); Osmolality,Calculated 282.4 MOS/KG (273-304); Potassium 3.9 MMOL/L (3.5-5.1); Total Protein 6.4 G/DL (6.4-8.2)
[2022-04-26] MEDS ORDERED: DOCUSATE SODIUM 100 MG CAPSULE PO PRN (06:37)
[2022-04-26] MEDS ORDERED: NITROGLYCERIN SL 0.4 MG TABLET SL PRN (06:37)
[2022-04-26] MEDS: LINACLOTIDE 145 MCG CAPSULE PO SCH (07:35)
[2022-04-26] MEDS: NYSTATIN 500,000 UNIT/5 ML UDCUP SWISH/SWAL SCH ×4 (09:39→21:40)
[2022-04-26] MEDS: LOSARTAN 25 MG TABLET PO SCH ×2 (09:40→21:40)
[2022-04-26] MEDS: PANTOPRAZOLE 40 MG TABLET PO SCH (09:40)
[2022-04-26] MEDS: POLYCARBOPHIL 625 MG TABLET PO SCH ×2 (09:40→21:40)
[2022-04-26] MEDS: ISOSORBIDE MONONITRATE 30 MG TABLET PO SCH (09:40)
[2022-04-26] MEDS: MAGNESIUM CHLORIDE 64 MG TABLET PO SCH ×2 (09:40→21:41)
[2022-04-26] MEDS: OXYBUTYNIN 5 MG TABLET PO SCH ×4 (09:40→21:40)
[2022-04-26] MEDS: TAMSULOSIN 0.4 MG CAPSULE PO SCH ×2 (09:40→21:40)
[2022-04-26] MEDS: allopurinoL 300 MG TABLET PO SCH (09:40)
[2022-04-26] MEDS: CETIRIZINE 10 MG TABLET PO SCH (09:40)
[2022-04-26] MEDS: ACETAMINOPHEN 325 MG TABLET PO PRN (09:47)
[2022-04-26] MEDS: FLUTICASONE 50 MCG NASAL SPRAY 16 GM BOTTLE BOTH NARES SCH (10:37)
[2022-04-26] MEDS: ASPIRIN EC 81 MG TABLET PO SCH (17:57)
[2022-04-26] MEDS: ROSUVASTATIN 10 MG TABLET PO SCH (17:57)
[2022-04-26] MEDS: tiZANidine 4 MG TABLET PO SCH (21:41)
[2022-04-26] MEDS: CYANOCOBALAMIN 500 MCG TABLET PO SCH (21:41)
[2022-04-27] MEDS: PIPERACILLIN/TAZOBACTAM 3,375 MG in SODIUM CHLORIDE 0.9% 100 ML IV SCH ×2 (05:15→12:25)
[2022-04-27] MEDS: SODIUM CHLORIDE 0.9% 1,000 ML IV SCH ×3 (05:30→21:40)
[2022-04-27 05:32] LABS: Basophils % 0.1 % (0.0-0.8); Eosinophils # 0.1 10*3/uL (0.0-0.87); Eosinophils % 1.5 % (0.00-10.9); Hematocrit 32.3 VOL% (42.0-52.0); Hemoglobin 10.6 GM/DL (14.0-18.0); Immature Granulocytes % 0.8 %; Immature Granulocytes Absolute 0.06 #; Lymphocytes # 1.1 10*3/uL (1.4-4.0); Lymphocytes % 14.3 % (21.2-54.2); Mean Corpuscular HGB Conc 32.8 GM/DL (32-36); Mean Platelet Volume 9.8 FL (9.6-12.0); Monocytes # 0.6 10*3/uL (0.11-0.8); Monocytes % 7.5 % (1.7-12.7); Neutrophils % 75.8 % (38.7-73.9); Platelet Count 194 T/CUMM (130-400); Red Cell Distribution Width 14.4 % (9.3-17.3); White Blood Count 7.9 T/CUMM (4-12)
[2022-04-27] MEDS: LINACLOTIDE 145 MCG CAPSULE PO SCH (07:25)
[2022-04-27] MEDS: THYROID 60 MG TABLET PO SCH (07:25)
[2022-04-27] MEDS: PANTOPRAZOLE 40 MG TABLET PO SCH (08:33)
[2022-04-27] MEDS: NYSTATIN 500,000 UNIT/5 ML UDCUP SWISH/SWAL SCH ×4 (08:33→21:37)
[2022-04-27] MEDS: MAGNESIUM CHLORIDE 64 MG TABLET PO SCH ×2 (08:33→21:37)
[2022-04-27] MEDS: ACETAMINOPHEN 325 MG TABLET PO PRN ×2 (08:34→21:47)
[2022-04-27] MEDS: allopurinoL 300 MG TABLET PO SCH (08:34)
[2022-04-27] MEDS: CETIRIZINE 10 MG TABLET PO SCH (08:34)
[2022-04-27] MEDS: TAMSULOSIN 0.4 MG CAPSULE PO SCH ×2 (08:34→21:38)
[2022-04-27] MEDS: LOSARTAN 25 MG TABLET PO SCH ×2 (08:34→21:38)
[2022-04-27] MEDS: POLYCARBOPHIL 625 MG TABLET PO SCH ×2 (08:34→21:38)
[2022-04-27] MEDS: ISOSORBIDE MONONITRATE 30 MG TABLET PO SCH (08:34)
[2022-04-27] MEDS: OXYBUTYNIN 5 MG TABLET PO SCH ×4 (08:34→21:38)
[2022-04-27] MEDS: FLUTICASONE 50 MCG NASAL SPRAY 16 GM BOTTLE BOTH NARES SCH (09:12)
[2022-04-27] MEDS ORDERED: MAGNESIUM HYDROXIDE SUSP 30 ML UDCUP PO ONE (11:01)
[2022-04-27] MEDS ORDERED: BISACODYL 10 MG SUPP RECTAL ONE (11:01)
[2022-04-27] MEDS: ERTAPENEM 1,000 MG in SODIUM CHLORIDE 0.9% 100 ML IV SCH (13:36)
[2022-04-27] MEDS: ASPIRIN EC 81 MG TABLET PO SCH (16:47)
[2022-04-27] MEDS: ROSUVASTATIN 10 MG TABLET PO SCH (16:47)
[2022-04-27] MEDS: CYANOCOBALAMIN 500 MCG TABLET PO SCH (21:37)
[2022-04-27] MEDS: tiZANidine 4 MG TABLET PO SCH (21:38)
[2022-04-28 04:41] LABS: Basophils % 0.3 % (0.0-0.8); Eosinophils # 0.2 10*3/uL (0.0-0.87); Eosinophils % 2.4 % (0.00-10.9); Hematocrit 32.3 VOL% (42.0-52.0); Hemoglobin 10.6 GM/DL (14.0-18.0); Immature Granulocytes % 0.8 %; Immature Granulocytes Absolute 0.06 #; Lymphocytes # 1.2 10*3/uL (1.4-4.0); Lymphocytes % 16.5 % (21.2-54.2); Mean Corpuscular HGB Conc 32.8 GM/DL (32-36); Mean Platelet Volume 9.6 FL (9.6-12.0); Monocytes # 0.5 10*3/uL (0.11-0.8); Monocytes % 6.8 % (1.7-12.7); Neutrophils % 73.2 % (38.7-73.9); Platelet Count 199 T/CUMM (130-400); Red Cell Distribution Width 14.3 % (9.3-17.3); White Blood Count 7.4 T/CUMM (4-12)
[2022-04-28] MEDS: THYROID 60 MG TABLET PO SCH (05:47)
[2022-04-28] MEDS: SODIUM CHLORIDE 0.9% 1,000 ML IV SCH ×3 (05:47→22:36)
[2022-04-28] MEDS ORDERED: BUTALBITAL/ACETAMIN/CAFFEINE 50-325-40 MG TABLET PO PRN (08:57)
[2022-04-28] MEDS ORDERED: SEMAGLUTIDE SUBCUT SCH (09:00)
[2022-04-28] MEDS ORDERED: LACTULOSE 20 GM/30 ML UDCUP PO ONE (09:00)
[2022-04-28] MEDS ORDERED: INJECTOR SUBCUT SCH (09:00)
[2022-04-28] MEDS: LINACLOTIDE 145 MCG CAPSULE PO SCH (09:29)
[2022-04-28] MEDS: ISOSORBIDE MONONITRATE 30 MG TABLET PO SCH (09:30)
[2022-04-28] MEDS: POLYCARBOPHIL 625 MG TABLET PO SCH ×2 (09:30→21:23)
[2022-04-28] MEDS: allopurinoL 300 MG TABLET PO SCH (09:30)
[2022-04-28] MEDS: LOSARTAN 25 MG TABLET PO SCH ×2 (09:30→21:23)
[2022-04-28] MEDS: OXYBUTYNIN 5 MG TABLET PO SCH ×4 (09:30→21:24)
[2022-04-28] MEDS: TAMSULOSIN 0.4 MG CAPSULE PO SCH ×2 (09:30→21:27)
[2022-04-28] MEDS: PANTOPRAZOLE 40 MG TABLET PO SCH (09:30)
[2022-04-28] MEDS: NYSTATIN 500,000 UNIT/5 ML UDCUP SWISH/SWAL SCH ×4 (09:30→21:23)
[2022-04-28] MEDS: MAGNESIUM CHLORIDE 64 MG TABLET PO SCH ×2 (09:31→21:23)
[2022-04-28] MEDS: CETIRIZINE 10 MG TABLET PO SCH (09:33)
[2022-04-28] MEDS: ACETAMINOPHEN 325 MG TABLET PO PRN ×2 (13:52→21:24)
[2022-04-28] MEDS: ERTAPENEM 1,000 MG in SODIUM CHLORIDE 0.9% 100 ML IV SCH (13:53)
[2022-04-28] MEDS: FLUTICASONE 50 MCG NASAL SPRAY 16 GM BOTTLE BOTH NARES SCH (13:54)
[2022-04-28] MEDS: ROSUVASTATIN 10 MG TABLET PO SCH (17:41)
[2022-04-28] MEDS: ASPIRIN EC 81 MG TABLET PO SCH (17:41)
[2022-04-28] MEDS: CYANOCOBALAMIN 500 MCG TABLET PO SCH (21:23)
[2022-04-28] MEDS: tiZANidine 4 MG TABLET PO SCH (21:24)
[2022-04-29] MEDS: THYROID 60 MG TABLET PO SCH (05:31)
[2022-04-29] MEDS: SODIUM CHLORIDE 0.9% 1,000 ML IV SCH ×3 (06:38→11:10)
[2022-04-29] MEDS: LOSARTAN 25 MG TABLET PO SCH (08:40)
[2022-04-29] MEDS: LINACLOTIDE 145 MCG CAPSULE PO SCH (08:40)
[2022-04-29] MEDS: OXYBUTYNIN 5 MG TABLET PO SCH ×4 (08:40→20:53)
[2022-04-29] MEDS: MAGNESIUM CHLORIDE 64 MG TABLET PO SCH ×2 (08:41→20:52)
[2022-04-29] MEDS: ISOSORBIDE MONONITRATE 30 MG TABLET PO SCH (08:41)
[2022-04-29] MEDS: NYSTATIN 500,000 UNIT/5 ML UDCUP SWISH/SWAL SCH ×4 (08:41→20:53)
[2022-04-29] MEDS: POLYCARBOPHIL 625 MG TABLET PO SCH ×2 (08:41→20:52)
[2022-04-29] MEDS: TAMSULOSIN 0.4 MG CAPSULE PO SCH ×2 (08:41→20:52)
[2022-04-29] MEDS: PANTOPRAZOLE 40 MG TABLET PO SCH (08:41)
[2022-04-29] MEDS: allopurinoL 300 MG TABLET PO SCH (08:42)
[2022-04-29] MEDS: CETIRIZINE 10 MG TABLET PO SCH (08:42)
[2022-04-29] MEDS ORDERED: fentaNYL 100 MCG/2 ML VIAL ONE (09:27)
[2022-04-29] MEDS ORDERED: ePHEDrine 50 MG/ML VIAL ONE (09:42)
[2022-04-29] MEDS ORDERED: propofoL 200 MG/20 ML VIAL IV ONE (10:19)
[2022-04-29] MEDS ORDERED: ONDANSETRON 4 MG/2 ML VIAL ONE (10:19)
[2022-04-29] MEDS ORDERED: LIDOCAINE 2% 5 ML VIAL ONE (10:19)
[2022-04-29] MEDS ORDERED: SEVOFLURANE 1 UNIT/15 MINUTE INH ONE (10:20)
[2022-04-29] MEDS ORDERED: ERTAPENEM 1,000 MG VIAL ONE (10:26)
[2022-04-29] MEDS: ERTAPENEM 1,000 MG in SODIUM CHLORIDE 0.9% 100 ML IV SCH (10:49)
[2022-04-29] MEDS: FLUTICASONE 50 MCG NASAL SPRAY 16 GM BOTTLE BOTH NARES SCH (13:20)
[2022-04-29] MEDS ORDERED: BISACODYL 5 MG TABLET PO PRN (14:02)
[2022-04-29] MEDS ORDERED: MAGNESIUM CITRATE 300 ML BOTTLE PO PRN (14:02)
[2022-04-29] MEDS: ASPIRIN EC 81 MG TABLET PO SCH (16:30)
[2022-04-29] MEDS: ROSUVASTATIN 10 MG TABLET PO SCH (16:30)
[2022-04-29] MEDS ORDERED: ERTAPENEM 1,000 MG in SODIUM CHLORIDE 0.9% 100 ML IV ONE (18:00)
[2022-04-29] MEDS: CYANOCOBALAMIN 500 MCG TABLET PO SCH (20:51)
[2022-04-29] MEDS: LOSARTAN 50 MG TABLET PO SCH (20:53)
[2022-04-29] MEDS: tiZANidine 4 MG TABLET PO SCH (20:53)
[2022-04-29] MEDS: ACETAMINOPHEN 325 MG TABLET PO PRN (20:58)
[2022-04-30] MEDS: SODIUM CHLORIDE 0.9% 1,000 ML IV SCH (00:32)
[2022-04-30] MEDS: THYROID 60 MG TABLET PO SCH (06:26)
[2022-04-30] MEDS: LINACLOTIDE 145 MCG CAPSULE PO SCH (06:31)
[2022-04-30 08:39] LABS: Basophils % 0.3 % (0.0-0.8); Eosinophils # 0.1 10*3/uL (0.0-0.87); Eosinophils % 1.7 % (0.00-10.9); Hematocrit 36.3 VOL% (42.0-52.0); Immature Granulocytes % 0.5 %; Immature Granulocytes Absolute 0.03 #; Lymphocytes # 1.1 10*3/uL (1.4-4.0); Lymphocytes % 18.4 % (21.2-54.2); Mean Corpuscular HGB Conc 33.1 GM/DL (32-36); Mean Corpuscular Volume 94.5 FL (87-102); Mean Platelet Volume 9.7 FL (9.6-12.0); Monocytes # 0.4 10*3/uL (0.11-0.8); Monocytes % 6.5 % (1.7-12.7); Neutrophils % 72.6 % (38.7-73.9); Platelet Count 258 T/CUMM (130-400); Red Blood Count 3.84 MC/CUMM (3.8-5.5); Red Cell Distribution Width 13.7 % (9.3-17.3)
[2022-04-30 08:56] LABS: Albumin 2.5 G/DL (3.4-5.0); Bilirubin,Total 0.4 MG/DL (0.20-1.00); Calcium 9.6 MG/DL (8.5-10.1); Osmolality,Calculated 274.7 MOS/KG (273-304); Potassium 5.1 MMOL/L (3.5-5.1); Total Protein 7.2 G/DL (6.4-8.2)
[2022-04-30] MEDS: POLYCARBOPHIL 625 MG TABLET PO SCH ×2 (09:20→21:10)
[2022-04-30] MEDS: CETIRIZINE 10 MG TABLET PO SCH (09:21)
[2022-04-30] MEDS: allopurinoL 300 MG TABLET PO SCH (09:21)
[2022-04-30] MEDS: TAMSULOSIN 0.4 MG CAPSULE PO SCH ×2 (09:21→21:11)
[2022-04-30] MEDS: PANTOPRAZOLE 40 MG TABLET PO SCH (09:21)
[2022-04-30] MEDS: ISOSORBIDE MONONITRATE 60 MG TABLET PO SCH (09:21)
[2022-04-30] MEDS: MAGNESIUM CHLORIDE 64 MG TABLET PO SCH ×2 (09:22→21:10)
[2022-04-30] MEDS: OXYBUTYNIN 5 MG TABLET PO SCH ×4 (09:22→21:11)
[2022-04-30] MEDS: NYSTATIN 500,000 UNIT/5 ML UDCUP SWISH/SWAL SCH ×4 (09:22→21:10)
[2022-04-30] MEDS: LOSARTAN 50 MG TABLET PO SCH ×2 (09:22→21:11)
[2022-04-30] MEDS: FLUTICASONE 50 MCG NASAL SPRAY 16 GM BOTTLE BOTH NARES SCH (09:25)
[2022-04-30] MEDS: ERTAPENEM 1,000 MG in SODIUM CHLORIDE 0.9% 100 ML IV SCH (17:15)
[2022-04-30] MEDS: ASPIRIN EC 81 MG TABLET PO SCH (17:30)
[2022-04-30] MEDS: ROSUVASTATIN 10 MG TABLET PO SCH (17:30)
[2022-04-30] MEDS: CYANOCOBALAMIN 500 MCG TABLET PO SCH (21:11)
[2022-04-30] MEDS: ACETAMINOPHEN 325 MG TABLET PO PRN (21:11)
[2022-04-30] MEDS: tiZANidine 4 MG TABLET PO SCH (21:12)
[2022-05-01] MEDS: SODIUM CHLORIDE 0.9% 1,000 ML IV SCH ×3 (00:35→10:18)
[2022-05-01 04:50] LABS: Basophils % 0.2 % (0.0-0.8); Eosinophils # 0.1 10*3/uL (0.0-0.87); Eosinophils % 2.5 % (0.00-10.9); Hemoglobin 10.4 GM/DL (14.0-18.0); Immature Granulocytes Absolute 0.05 #; Lymphocytes # 1.3 10*3/uL (1.4-4.0); Lymphocytes % 26.6 % (21.2-54.2); Mean Corpuscular HGB Conc 32.5 GM/DL (32-36); Mean Corpuscular Volume 95.5 FL (87-102); Mean Platelet Volume 9.2 FL (9.6-12.0); Monocytes # 0.3 10*3/uL (0.11-0.8); Monocytes % 5.9 % (1.7-12.7); Neutrophils % 63.8 % (38.7-73.9); Platelet Count 250 T/CUMM (130-400); Red Blood Count 3.35 MC/CUMM (3.8-5.5); White Blood Count 4.8 T/CUMM (4-12)
[2022-05-01 05:14] LABS: Alanine Aminotransferase 35 U/L (16-61); Albumin 2.4 G/DL (3.4-5.0); Alkaline Phosphatase 92 U/L (45-117); Aspartate Amino Transferase 21 U/L (0-37); Bilirubin,Total < 0.39 MG/DL (0.20-1.00); Blood Urea Nitrogen 12 MG/DL (7-18); Calcium 9.1 MG/DL (8.5-10.1); Carbon Dioxide 27 MMOL/L (21-32); Chloride 110 MMOL/L (98-107); Glucose 93 MG/DL (74-106); Osmolality,Calculated 280.3 MOS/KG (273-304); Potassium 4.3 MMOL/L (3.5-5.1); Sodium 141 MMOL/L (136-145); Total Protein 6.4 G/DL (6.4-8.2)
[2022-05-01] MEDS: THYROID 60 MG TABLET PO SCH (06:38)
[2022-05-01] MEDS: LINACLOTIDE 145 MCG CAPSULE PO SCH (06:39)
[2022-05-01] MEDS: MAGNESIUM CHLORIDE 64 MG TABLET PO SCH (09:45)
[2022-05-01] MEDS: NYSTATIN 500,000 UNIT/5 ML UDCUP SWISH/SWAL SCH ×3 (09:45→16:19)
[2022-05-01] MEDS: CETIRIZINE 10 MG TABLET PO SCH (09:45)
[2022-05-01] MEDS: POLYCARBOPHIL 625 MG TABLET PO SCH (09:45)
[2022-05-01] MEDS: OXYBUTYNIN 5 MG TABLET PO SCH ×3 (09:46→16:23)
[2022-05-01] MEDS: ISOSORBIDE MONONITRATE 60 MG TABLET PO SCH (09:46)
[2022-05-01] MEDS: PANTOPRAZOLE 40 MG TABLET PO SCH (09:46)
[2022-05-01] MEDS: TAMSULOSIN 0.4 MG CAPSULE PO SCH (09:46)
[2022-05-01] MEDS: allopurinoL 300 MG TABLET PO SCH (09:46)
[2022-05-01] MEDS: LOSARTAN 50 MG TABLET PO SCH ×2 (09:46→16:19)
[2022-05-01] MEDS: FLUTICASONE 50 MCG NASAL SPRAY 16 GM BOTTLE BOTH NARES SCH (10:19)
[2022-05-01 11:46] VITALS: BP 110/52
[2022-05-01] MEDS: ERTAPENEM 1,000 MG in SODIUM CHLORIDE 0.9% 100 ML IV SCH (15:08)
[2022-05-01] MEDS: ROSUVASTATIN 10 MG TABLET PO SCH (16:22)
[2022-05-01] MEDS: ASPIRIN EC 81 MG TABLET PO SCH (16:22)
== END 2022-05-01 17:01 | disposition home health service (06) | DRG 660 ==
LOC: N.ED 15:49 → N.EDINP 18:44 → N.3E 04-26 00:33
PROVIDERS: ADMIT Family Medicine; ATTEND Family Medicine